=== PATIENT | female | born 1945 | race Caucasian/White ===

== ENCOUNTER 2021-02-10 10:29 | Day surgery (SDC) | payer MEDICARE, BC ==
[2021-02-08 17:13] LABS: CORONAVIRUS COVID-19 NAA NEGATIVE (NEGATIVE)
[~2021-02-10 10:29] MED LIST: Midazolam 1 MG/ML 2 ML SDV ONE; Propofol 200 MG/20 ML SDV ONE; Sodium Chloride 0.9% 10 ML Syringe FLUSH PRN
--- NOTE | 2021-02-10 11:00 | PCM.HPR ---
H & P Addendum review - H & P Addendum Review Date of Original H & P: 01/31/21 Date Reviewed: 02/10/21 Time Reviewed: 10:59 Patient was Examined: No Changes
[2021-02-10] MEDS: Lactated Ringers 1,000 ML IV SCH (11:20)
[2021-02-10] MEDS ORDERED: Propofol 200 MG/20 ML SDV ONE (11:24)
[2021-02-10] MEDS ORDERED: Midazolam 1 MG/ML 2 ML SDV ONE (11:24)
--- NOTE | 2021-02-10 11:56 | PCM.OPNOTE ---
- General Post-Op/Procedure Note Date of Surgery/Procedure: 02/10/21 Operative Procedure(s): Colonoscopy with Polypectomy Findings: Polyps Pre Op Diagnosis: Pos Cologuard Post-Op Diagnosis: Same Anesthesia Technique: MAC Primary Surgeon: Quincy Ramos Anesthesia Provider: Alejandra HA in mLs: 0 Complications: None Condition: Good
--- NOTE | 2021-02-10 13:20 | OR ---
Date of Procedure: 02/10/2021 PREOPERATIVE DIAGNOSIS: Positive Cologuard. POSTOPERATIVE DIAGNOSIS: Colon polyps. PROCEDURE: Colonoscopy with polypectomy. ANESTHESIA: IV sedation. PROCEDURE IN DETAIL: Patient was brought to the procedure room where she was placed on her left side and IV sedation administered. Digital rectal exam was performed, which was normal. Colonoscope was inserted and advanced to the level of the cecum without difficulty. Cecal position was confirmed by identifying the appendiceal lumen and ileocecal valve. Prep was good and surfaces well visualized. In the cecum, there were 2 large sessile multilobulated polyps, each measuring over a centimeter in diameter. Both these were removed piecemeal and completely transected. Hemostasis was assured. Tissue will be sent for pathology review. The ascending and transverse colon was normal. In the descending colon, there was a 6-mm sessile polyp removed with a cautery snare. Sigmoid colon and rectum were normal. Retroflexion was normal. Air was removed and the scope withdrawn. Patient tolerated the procedure well and returned to recovery in stable condition. Patient will be contacted with the pathology report when it returns. Polyps are obviously adenomatous and we would recommend she undergo a repeat colonoscopy again in 3 years. EDEN MICHAEL MD /[id number]
== END 2021-02-10 13:19 | disposition home or self-care (01) ==
LOC: LL.SDS 10:29
PROVIDERS: ATTEND Surgery
DX: D12.4 Benign neoplasm of descending colon (principal); D12.0 Benign neoplasm of cecum; E78.2 Mixed hyperlipidemia; E55.9 Vitamin D deficiency, unspecified; E89.0 Postprocedural hypothyroidism; Z01.812 Encounter for preprocedural laboratory examination; Z79.899 Other long term (current) drug therapy; Z79.890 Hormone replacement therapy; Z88.0 Allergy status to penicillin; Z88.8 Allergy status to other drugs, medicaments and biological substances; Z98.890 Other specified postprocedural states; Z20.822 Contact with and (suspected) exposure to COVID-19
CPT/HCPCS: 00812; 88305; J2250; J2704; J7120; U0002

== ENCOUNTER 2024-03-20 10:22 | Day surgery (SDC) | payer MEDICARE, BC ==
[2024-03-20] MEDS: Lactated Ringers 1,000 ML IV SCH (10:32)
[2024-03-20] MEDS ORDERED: Propofol 200 MG/20 ML SDV IV ONE (10:50)
== END 2024-03-20 12:32 | disposition home or self-care (01) ==
LOC: LL.SDS 10:22
PROVIDERS: ATTEND Surgery
DX: D12.2 Benign neoplasm of ascending colon (principal); D12.5 Benign neoplasm of sigmoid colon; L40.9 Psoriasis, unspecified; R21 Rash and other nonspecific skin eruption; B02.9 Zoster without complications; F41.9 Anxiety disorder, unspecified; Z79.899 Other long term (current) drug therapy; Z79.890 Hormone replacement therapy; Z88.0 Allergy status to penicillin; Z88.8 Allergy status to other drugs, medicaments and biological substances; Z98.890 Other specified postprocedural states; Z86.010 Personal history of colon polyps
CPT/HCPCS: 00811; 99100; J2250; J2704; J7120